=== PATIENT | female | born 1945 | race Caucasian/White ===

== ENCOUNTER 2016-08-17 17:10 | Emergency (ER) | payer MEDICARE, BC ==
[2016-08-17 19:36] LABS: HEMOGLOBIN 13.8 gm/dl (12.3-15.3); RED BLOOD COUNT 4.43 M/UL (4.00-5.10); WHITE BLOOD COUNT 6.9 K/UL (4.5-11.0)
[2016-08-17 19:57] LABS: BUN/CREATININE RATIO 22 (0-10)
== END 2016-08-17 22:46 | disposition home or self-care (01) ==
LOC: ER1 17:10
PROVIDERS: Physician Assistant
DX: K86.1 Other chronic pancreatitis (principal); N18.9 Chronic kidney disease, unspecified; R11.2 Nausea with vomiting, unspecified; J44.9 Chronic obstructive pulmonary disease, unspecified; F17.210 Nicotine dependence, cigarettes, uncomplicated; Z88.1 Allergy status to other antibiotic agents; Z88.8 Allergy status to other drugs, medicaments and biological substances; Z90.49 Acquired absence of other specified parts of digestive tract; Z79.82 Long term (current) use of aspirin; Z79.899 Other long term (current) drug therapy
CPT/HCPCS: 36415; 71010; 80053; 81001; 82150; 82550; 82553; 83690; 83874; 84484; 85025; 87077; 87086; 87186; 96361; 96374; 96375; 96376; 99284; J1642; J2270; J2405; J7030; J7050; Q9962

== ENCOUNTER → 2016-08-22 | Outpatient (CLI) | payer MEDICARE, BC | LOC: LAB 09:10 | DX: R73.9 Hyperglycemia, unspecified (principal) | CPT/HCPCS: 36415; 83036; 84590 ==

== ENCOUNTER 2016-08-23 10:56 | Emergency (ER) | payer SELFPAY ==
[2016-08-23 11:40] LABS: HEMOGLOBIN 17.1 gm/dl (12.3-15.3); RED BLOOD COUNT 5.5 M/UL (4.00-5.10)
[2016-08-23 12:01] LABS: BUN/CREATININE RATIO 25 (0-10)
== END 2016-08-23 15:45 | disposition home or self-care (01) ==
LOC: ER1 10:56
PROVIDERS: Emergency Medicine
DX: S16.1XXA Strain of muscle, fascia and tendon at neck level, initial encounter (principal); R51 Headache; M54.6 Pain in thoracic spine; V49.50XA Passenger injured in collision with unspecified motor vehicles in traffic accident, initial encounter; Y92.410 Unspecified street and highway as the place of occurrence of the external cause; F17.200 Nicotine dependence, unspecified, uncomplicated
CPT/HCPCS: 36415; 70450; 71010; 72125; 72128; 80053; 83690; 85025; 96374; 96375; 96376; 99284; J2270; J2405

== ENCOUNTER → 2016-08-26 | Outpatient (CLI) | payer MEDICARE, BC | LOC: EMI 17:17 | DX: M54.2 Cervicalgia (principal); M40.40 Postural lordosis, site unspecified; M47.812 Spondylosis without myelopathy or radiculopathy, cervical region | CPT/HCPCS: 72141 ==

== ENCOUNTER → 2016-11-18 | Outpatient (CLI) | payer MEDICARE, BC | LOC: RAD 11:11 | DX: I10 Essential (primary) hypertension (principal) | CPT/HCPCS: 93005 ==

== ENCOUNTER → 2016-11-25 | Outpatient (CLI) | payer MEDICARE, BC | LOC: KOH-I 09:56 | DX: M85.80 Other specified disorders of bone density and structure, unspecified site (principal); M81.8 Other osteoporosis without current pathological fracture | CPT/HCPCS: 77080 ==

== ENCOUNTER 2017-02-11 20:20 | Emergency (ER) | payer MEDICARE, BC | END 2017-02-11 21:30 | disposition home or self-care (01) | LOC: ER1 20:20 | DX: S62.617A Displaced fracture of proximal phalanx of left little finger, initial encounter for closed fracture (principal); I73.9 Peripheral vascular disease, unspecified; K86.1 Other chronic pancreatitis; K86.81 Exocrine pancreatic insufficiency; F17.210 Nicotine dependence, cigarettes, uncomplicated; Z79.899 Other long term (current) drug therapy; W01.0XXA Fall on same level from slipping, tripping and stumbling without subsequent striking against object, initial encounter | CPT/HCPCS: 73110; 73130; 99283 ==